=== PATIENT | male | born 1950 | race Caucasian/White ===

== ENCOUNTER → 2016-11-25 09:03 | Outpatient (CLI) | payer MEDICARE ==
--- NOTE | 2016-11-28 16:40 | EC ---
PATIENT:MARY FABIAN DATE OF SERVICE: 11/25/16 SEX: M MEDICAL RECORD: [id number] DATE OF : 46 LOCATION:[facility] AGE OF PATIENT: 66 ADMISSION DATE: 11/25/16 REFERRING PHYSICIAN: INTERPRETING PHYSICIAN: ERIK TAYLOR MD ECHOCARDIOGRAM REPORT ECHO CHARGES 4 ECHO COMPLETE CLINICAL DIAGNOSIS: DYSPNEA/EDEAM/HTN ECHOCARDIOGRAPHIC MEASUREMENTS (adult normal given) AC root (d.<3.7cm) 3.9 LV Septum d (<1.2 cm> 1.3 Valve Excursion 2.0 LV Septum (systole) 1.7 Left Atria (s.<4.0cm> 3.6 LVPW d(<1.2cm) 1.2 RV (d.<2.3cm) 2.3 LVPW (sytole) 1.6 LV diastole(<5.6CM) 5.2 MV E-F(>70mm/sec) LV systole 3.2 LVOT Diameter 1.9 MV exc.(>10mm) 1.1 Est.ejection fraction (50-75%) Pericardial Effusion N DOPPLER: LVIT A 76.0 E 44.0 LA RVSP 22 LVOT 94 AOP1/2T Asc. Ao 109 RVOT 71 RA PA 103 AV Gradient Peak 4.71 AV Mean 2.41 AV Area 2.6 MV Gradient Peak 2.70 MV Mean 0.88 MV Area COMMENTS: Coin Dealer: Dee HOUSE Fisher Pot:Dee Rose TAPE# PACS DATE OF SERVICE: 11/25/2016 Echocardiogram FINDINGS: 1. Left ventricular chamber size is within normal limits. Left ventricular systolic function is normal. Overall ejection fraction estimated at 50-55%. 2. Left atrium, right atrium and right ventricular chamber sizes are within normal limits. 3. Valvular structures have normal structure and motion. ECHOCARDIOGRAM REPORT [id number] MARY FABIAN 4. Doppler interrogation reveals only trace to mild mitral regurgitation, trace to mild tricuspid regurgitation. No other valvular insufficiency or stenosis. 5. No evidence of pericardial effusion or left ventricular thrombus. TRANSINT:[id number] Voice Confirmation ID: [id number] DOCUMENT ID: [id number] ERIK TAYLOR MD at [facility] CC: [id number] DICTATION DATE: 11/25/16 1156 COMMERCIAL ENERGY RATER: 11/25/16 1218 DEP CLI 11/25/16 [place] [id number] [place] [id number]
== END | disposition home or self-care (01) ==
LOC: D.ECHO 09:03
DX: R06.00 Dyspnea, unspecified (principal); R60.0 Localized edema; I10 Essential (primary) hypertension

== ENCOUNTER → 2016-12-17 13:23 | Outpatient (CLI) | payer MEDICARE | END | disposition home or self-care (01) | LOC: D.CT 13:23 | DX: R06.02 Shortness of breath (principal); R60.0 Localized edema; E03.8 Other specified hypothyroidism ==

== ENCOUNTER 2016-12-17 14:35 | Emergency (ER) | payer MEDICARE | END 2016-12-17 16:06 | disposition home or self-care (01) | LOC: D.ER 14:35 | DX: T78.8XXA Other adverse effects, not elsewhere classified, initial encounter (principal); X58.XXXA Exposure to other specified factors, initial encounter; E03.9 Hypothyroidism, unspecified; I10 Essential (primary) hypertension; E07.9 Disorder of thyroid, unspecified ==

== ENCOUNTER → 2019-07-26 11:55 | Outpatient (CLI) | payer MEDICARE ==
--- NOTE | ~2019-07-26 | HEMODYNAMI ---
PATIENT:JF FABIAN MEDICAL RECORD: [id number] : 46 LOCATION:[facility] ADMISSION DATE: 07/26/19 Generatedon:07/26/201913:36 Patient name: JF FABIAN Patient #: [id number] SSN: D OB: 1950 Date of study: 07/26/2019 Page: Of Hemodynamic Procedure Report Patient Data Patient Demographics Procedure consent was obtained First Name: JF Gender: Male Last Name: CAREN : 1950 Middle Initial: STEVE Age: 68 year(s) Patient #: [id number] Race: Unknown Additional ID: [id number] Contact details [address]: [address] [place] [address] State: [place] City: [place] Zip code: [address] Admission Admission Data Admission Date: 07/26/2019 Admission Time: 11:55 Procedure Procedure Types Cath Procedure Peripheral Cath Diagnostic Procedure Miscellaneous Aspiration/Injection (Joint) Procedure Description Procedure Date Procedure Date: 07/26/2019 Procedure Start Time: 13:29 Procedure End Time: 13:36 Procedure Staff Name Function Gabriella Gates MD Performing Physician RAJESH BLACKMAN RT Monitor Procedure Data Cath Procedure Fluoroscopy Diagnostic fluoroscopy Total fluoroscopy Time: 0.3 time: 0.3 min min Diagnostic fluoroscopy Total fluoroscopy dose: 3 dose: 3 mGy mGy Hemodynamics Rest Pre Cath Intra NCS Post Cath Procedure Log Time Note 13:12:14 SAFE-T PLUS MYELOGRAM TRAY opened to sterile field. 13:20:32 RAJESH BLACKMAN RT (R) sent for patient. Start room use. 13:20:33 Time tracking: Regular hours (M-F 7:00 - 5:00) 13:20:40 Patient received from Other to IR Alert and oriented. Tansferred to table in Supine position. 13:20:42 Signed procedure consent form obtained from patient. 13:20:44 Correct patient and procedure confirmed by team. 13:20:45 - 13:20:46 - 13:20:50 Pre-procedure instructions explained to patient. 13:20:51 Pre-op teaching completed and patient verbalized understanding. 13:20:54 Is the patient allergic to Iodine/contrast media? Yes. 13:21:15 Is patient on blood thinner?No 13:21:18 - 13:21:26 Right Hip was prepped with betadine and draped in sterile fashion. 13::28 Sharps counted by scrub and verified by oDv ::29 Alarms reviewed by Arabella Zuniga 13:21:33 - 13:23:59 Physician arrived 13:24:10 --------ALL STOP TIME OUT------ 13:24:12 Final Timeout: patient, procedure, and site verified with staff and physician. All members of the team are in agreement. 13:24:17 Right hip site verified by team. ::37 Procedure started. :37 Full Disclosure recording started 13:29:12 Local anesthetic to Right Hip with Lidocaine 1% by Gabriella Gates MD.INITIA L ACCESS ONLY 13:34:42 Procedure ended.(Physican Out) 13:34:59 Fluoroscopy time 00.30 minutes. 13:35:04 Fluoroscopy dose: 3 mGy 13:35:04 Flurop Dose total: 3 13:35:13 Sharps counted by scrub and verified by R.N. 13:35:27 Post Right Hip:stable. bandaid applied and patient sent home 13:35:44 Post procedure instruction explained to patient.Patient verbalizes understanding. 13:35:52 Procedure and supply charges have been captured, reviewed, submitted an d are correct. 13:36:16 Procedure ended. 13:36:16 Full Disclosure recording stopped Device Usage Item Name Manufacture Quantity Catalog Hospital Part Current Minimal Lot# / Number Charge Number Stock Stock Serial# Code SAFE-T CareFusion 1 [id number] PLUS MYELOGRAM TRAY Signature Audit [place] Stage Time Signature Unsigned Intra-Procedure 07/26/2019 RAJESH BLACKMAN RT 1:36:28 PM (R) Signatures Performing Physician : Signature : Gabriella Gates MD Date : Time : Monitor : RAJESH BLACKMAN RT Signature : Date : Time : [address] [place] [address]
== END | disposition home or self-care (01) ==
LOC: D.SP 11:55 → D.RAD 13:00
PROVIDERS: ATTEND Nurse Practitioner Family
DX: M25.551 Pain in right hip (principal)

== ENCOUNTER → 2019-10-12 12:32 | Outpatient (CLI) | payer MEDICARE | END | disposition home or self-care (01) | LOC: D.LABREF 12:32 | PROVIDERS: ATTEND Orthopaedic Surgery | DX: M16.11 Unilateral primary osteoarthritis, right hip (principal) ==

== ENCOUNTER 2019-10-21 13:40 | Inpatient (IN) | payer MEDICARE ==
[~2019-10-21] VITALS: Ht 175.3 cm; Wt 85.9 kg
[2019-11-10] MEDS ORDERED: HYDROCHLOROTHIA25 MG PO (10:45)
[2019-11-10] MEDS ORDERED: TIROSINT100 MCG PO (10:45)
[2019-11-10] MEDS ORDERED: ALBUTEROL2.5 MG/3 M INH (10:47)
[2019-11-10 12:04] LABS: CALC OSMOLALITY 279 mosm/kg (275-300); CALCIUM 8.8 mg/dL (8.5-10.1); CARBON DIOXIDE 31.9 mmol/L (21.0-32.0); CHLORIDE - SERUM 100 mmol/L (98-107); GLUCOSE 101 mg/dL (74-106); POTASSIUM - SERUM 3.3 mmol/L (3.5-5.1); SODIUM 139 mmol/L (136-145); UREA NITROGEN 19 mg/dL (7-18); eGFR NON AFRICAN AMERICAN 78 mL/min (90-120)
[2019-11-10 12:16] LABS: APTT 32.6 SECONDS (22.8-39.4); PROTIME 12.7 SECONDS (11.6-15.0)
[2019-11-10 12:32] LABS: APPEARANCE CLEAR (CLEAR); BACTERIA FEW /hpf (NEGATIVE); BILIRUBIN NEGATIVE (NEGATIVE); COLOR DK YELLOW (YELLOW); EPITHELIAL CELLS OCC /hpf (0-5); GLUCOSE NEGATIVE (NEGATIVE); HYALINE CAST OCC /lpf (NONE SEEN); KETONE NEGATIVE (NEGATIVE); MUCUS >1+ /lpf (NONE SEEN); NITRITE NEGATIVE (NEGATIVE); PROTEIN TRACE mg/dL (NEGATIVE); SPECIFIC GRAVITY 1.015 (1.005-1.020); UROBILINOGEN NORMAL (NORMAL); WHITE CELLS - URINE OCC /hpf (NEGATIVE)
[2019-11-10 12:53] LABS: BASOPHILS 0.3 % (0-2); EOSINOPHILS 2.1 % (0-7); HEMATOCRIT 43.8 % (42.0-54.0); HEMOGLOBIN 15.3 g/dL (13.5-17.5); IMMATURE GRANULOCYTES 0.3 % (0-5); LYMPHOCYTES 43.5 % (15-50); MCH 30.4 pg (26.0-34.0); MCHC 34.9 g/dL (31.0-37.0); MCV 87.1 fL (80.0-100.0); MEAN PLATELET VOLUME 8.7 fL (7.4-10.4); MONOCYTES 6.5 % (2-11); NEUTROPHILS 47.3 % (40-80); PLATELET COUNT 360 10x3/uL (130-400); RBC 5.03 10x6/uL (4.20-6.10); RDW 12.5 % (11.5-14.5); WBC 11.4 10x3/uL (4.8-10.8)
[2019-11-15 10:48] VITALS: BP 145/84; BMI 28.1
[2019-11-15 17:00] VITALS: BP 101/74
[2019-11-15 17:21] VITALS: BP 101/74; Ht 175.3 cm; Wt 85.9 kg
--- NOTE | 2019-11-15 18:50 | NUR ---
PATIENT IS RESTING IN BED WITH EYES CLOSED AND ICE PACK OVER FOREHEAD. NO S/S OF ACUTE DISTRESS. NO COMPLAINTS AT THIS TIME. PATIENT IV IN THE L HAND 1/2 NORMAL SALINE @ 100 ML/HR. IV IS PATENT WITHOUT REDNESS, SWELLING, OR TENDERNESS. O2 NASAL CANNULA @ 3L. PATIENT IS POST OP DAY 1 FOR REPAIR OF A R HIP FX. DRESSING IS C/D/I. PATIENT IS WEARING GLASSES, AND IS [place]. CALL LIGHT IN PLACE WILL CONTINUE TO MONITOR.
[2019-11-15 20:52] VITALS: BP 106/71
[2019-11-16 01:30] VITALS: BP 110/73
[2019-11-16 05:14] VITALS: BP 110/56
--- NOTE | 2019-11-16 06:18 | NUR ---
I have reviewed this patient and I concur with the Shift Assessment completed by the Licensed Practical Nurse today this shift.
[2019-11-16 06:49] LABS: BASOPHILS 0.1 % (0-2); EOSINOPHILS 1.2 % (0-7); HEMATOCRIT 35.3 % (42.0-54.0); HEMOGLOBIN 11.7 g/dL (13.5-17.5); IMMATURE GRANULOCYTES 0.2 % (0-5); LYMPHOCYTES 28.5 % (15-50); MCH 29.5 pg (26.0-34.0); MCHC 33.1 g/dL (31.0-37.0); MCV 88.9 fL (80.0-100.0); MEAN PLATELET VOLUME 8.7 fL (7.4-10.4); MONOCYTES 9.6 % (2-11); NEUTROPHILS 60.4 % (40-80); PLATELET COUNT 320 10x3/uL (130-400); RBC 3.97 10x6/uL (4.20-6.10); RDW 12.5 % (11.5-14.5); WBC 15.4 10x3/uL (4.8-10.8)
--- NOTE | 2019-11-16 06:59 | OP ---
PATIENT NAME: JF FABIAN MEDICAL RECORD: [id number] :46 LOCATION:[id number] ADMISSION DATE:11/15/19 SURGEON: RUSSELL PARSON DO DATE OF OPERATION: 11/15/2019 PROCEDURE PERFORMED: Right total hip arthroplasty. PREOPERATIVE DIAGNOSIS: Right hip osteoarthritis, osteoarthritis. POSTOPERATIVE DIAGNOSIS: Right hip osteoarthritis. INDICATIONS: Mr. Fabian is a 69-year-old male who has had right hip pain for quite some time. He has started dealing with the pain. He said this has affected his activities of daily living. Once he discovered that he had a total hip done, he wanted something done surgically due to the fact that it bothered him so much. He tried all manner of nonoperative treatment first. He is aware of the risks including infection, bleeding, damage to nerves and vessels, fracture, failure of implant, continued pain, need for further surgery, blood clots, and even and leg length discrepancy and he signed a consent. SURGEON: Russell Parson DO DESCRIPTION OF PROCEDURE: The patient was taken to the operative suite, laid in supine position, given general anesthetic and intubated. He was then moved over to the Vest table and positioned. He was given 2 grams Ancef, 80 mg gentamicin, and a gram of TXA prior to surgery. Once he was positioned on the Vest table, the right hip was prepped and draped in sterile fashion. Timeout was performed. Everyone was agreeance with correct side, site, patient, and procedure. The incision then began over the tensor fascia yang muscle. Thorough dissection was made down to the tensor fascia yang fascia. The fascia was incised. Fascia was taken anterior to the muscle belly posteriorly, opened up the rectus interval. The rectus interval was then opened and then the rectus was taken medially and the tensor fascia yang laterally. The ascending branch of the lateral femoral circumflex artery was then encountered or tied off and coagulated with the Aquamantys and cut and then exposed the capsule. Capsule was opened and tagged and then Hohmanns were put around the femoral neck. Femoral neck was then cut and the head was removed. I then removed the labrum and the pulvinar and began reaming first medializing and then up to a 52, 52 cup was impacted and liner was impacted and the femur was then exposed and began broaching up to a #9 and #9 fit somewhat snug was then we trialed up to a -3 and made more length and this is dislocated and taken down and then we broached up to an 11. The 11 fit very snugly and we put a standard high offset on. This was reduced and x-rays were taken it very well and were almost exactly equally to the left side on AP pelvis. The femur was checked and there were no fractures seen. The site was then thoroughly irrigated and then the povidone iodine 10% solution with 500 mL of normal saline was put into the wound and left for 3 minutes, was then suctioned out and then more than a liter of normal saline was used to irrigate that. Then, we put in vancomycin and tobramycin powder and Lacy powder. The tensor fascia yang fascia was then closed with #1 Vicryl, first in a [id number] and then a running locking stitch. Skin was then closed with 2-0 Vicryl in inverted interrupted fashion, 4-0 Monocryl running on the skin and Prineo glue on the skin. Telfa and Tegaderm, then we covered the incision. He was then awakened and taken to recovery in stable condition. Blood loss approximately 300 mL. OPERATIVE REPORT [id number] JF FABIAN COMPLICATIONS: None. TRANSINT:[id number] Voice Confirmation ID: [id number] DOCUMENT ID: [id number] RUSSELL PARSON DO at 0659 CC: [id number] DICTATION DATE: 11/15/19 1551 PAYROLL COORDINATOR: 11/16/19 0241 ADM IN [place] [id number] [place] [id number]
[2019-11-16 07:09] LABS: ALBUMIN 2.9 g/dL (3.4-5.0); ANION GAP 11.9 mmol/L (8-16); BILIRUBIN - TOTAL 0.72 mg/dL (0.2-1.3); CALCIUM 7.6 mg/dL (8.5-10.1); CREATININE - SERUM 1.3 mg/dL (0.6-1.3); MAGNESIUM - SERUM 1.8 mg/dL (1.8-2.4); PHOSPHOROUS 3.5 mg/dL (2.5-4.9); POTASSIUM - SERUM 3.9 mmol/L (3.5-5.1); PROTEIN - SERUM 5.8 g/dL (6.4-8.2)
--- NOTE | 2019-11-16 08:00 | NUR ---
ASSESSMENT PER FLOW SHEET. PT IS WITHOUT DISTRESS.HE IS HAVING SOME PAIN. MEDS ORDERED PER MAR FOR HIP.FALL PREVENTION IN PLACE
[2019-11-16 08:57] VITALS: BP 111/65
--- NOTE | 2019-11-16 11:39 | NUR ---
Rehab Note- Acute Inpatient Rehab prescreen order received. The patient has [employer] insurance and will require a PreAuth prior to an acute inpatient rehab stay. OT Eval is needed for PreAuth process. Will begin the PreAuth process. Will follow the patient at this time. Thank you for this referral! Ca Lauren RN Clinical Liaison, [facility] Re[facility]
[2019-11-16 11:54] VITALS: BP 108/66
--- NOTE | 2019-11-16 15:41 | NUR ---
COUDE DINH INSERTED USING ADVANCED MANUFACTURING ASSOCIATE.450 CC OF CONCENTRATED URINE COLLECTED IN DRAINAGE BAG.URINE TO LAB FOR UA. STATES PATIENT PREVIOUSLY ON ABX FOR UTI AND HOPES IT IS NOT COMING BACK
--- NOTE | 2019-11-16 16:00 | NUR ---
HIGH RISK / IMPAIRED SKIN INTEGRITY -TURN/REPOSITION Q 2 HOURS (HOURLY REPOSITIONING IF UP IN CHAIR -FLOAT HEELS OFF MATTRESS/PILLOWS -DAILY AND NEEDED PERSONAL CARE, USING CALMOSEPTINE CREAM IF REDNESS IS NOTED DUE TO INCONTINENCE/MOISTURE -SKIN ASSESSMENT Q SHIFT -CONSULT WOUND CARE IF NON-BLANCHABLE REDNESS OVER BONY PROMINENCES IS NOTED
[2019-11-16 16:15] VITALS: BP 116/74
--- NOTE | 2019-11-16 16:25 | MORECARE ---
CASE MANAGEMENT DISCHARGE SUMMARY PATIENT: JF FABIAN UNIT: [id number] ADM DATE: 11/15/19 AGE: 69 : 48 SEX: M ROOM/BED: D.2231 AUTHOR: GIULIA PEOPLES PHYSICIAN: REFERRING PHYSICIAN: AKIN PARSON DO DATE OF SERVICE: 11/16/19 Discharge Plan Patient Name: JF FABIAN Facility: [facility]:[place] : 1950 Planned Disposition: Inpatient Rehab Anticipated Discharge Date: Discharge Date: Expected LOS: Initial Reviewer: [email or web address] Initial Review Date: 11/16/2019 Generated: 11/16/19 5:25 pm Comments DCP- Discharge Planning Updated by [email or web address]: Chrissy Brooks on 11/16/19 3:[address] Patient Name: JF FABIAN Admission Status: Elective Accout number: [id number] Admission Date: 11-15-2019 : 1950 Admission Diagnosis: Attending: AKIN PARSON Current LOS: 1 Anticipated DC Date: Planned Disposition: Inpatient Rehab Primary Insurance: [employer] ADV Discharge Planning Comments: CM met with patient to complete initial dc planning assessment. CM educated patient on the CM role and verbal consent given by patient to complete assessment. Patient is drowsy during the assessment and gives permission for to answer questions. Patient lives at home with his . He is typically independent with all ADL's. CM discussed availability of home health, rehab services, and medical equipment. states they would like him to go to inpatient rehab at [facility]. States she does not want him to go to [facility], so will not give me a second choice. Rehab screen/OT and PT evals are ordered. I explained he would need authorization from insurance prior to admission to inpatient rehab. CM will continue to follow and will assist as needed with dc plans/needs. Header Up: Chrissy Brooks DCPIA - Discharge Planning Initial Assessment Updated by [id number]: Chrissy Brooks on 11/16/19 4:20 pm * Is the patient Alert and Oriented? No * How many steps to enter\exit or inside your home? 2/0 * PCP Dr. Tineo * Pharmacy [facility] in [place] * Preadmission Environment Home with Family * ADLs Independent * Equipment Cane Elevated Toliet Seat Other Walker * Other Equipment Walk in shower * List name and contact numbers for known caregivers / representatives who currently or will assist patient after discharge: Jacquelin Fabian - spouse - [phone] * Verbal permission to speak to the caregivers and representatives has been obtained from the patient. Yes * Community resources currently utilized None * Additional services required to return to the preadmission environment? Yes * Can the patient safely return to the preadmission environment? Yes * Has this patient been hospitalized within the prior 30 days at any hospital? No Coverage Notice Reviewer: [id number] William Brooks Notice Issued Date-Time: 11/16/2019 16:14 Notice Type: Patient Choice Letter Notice Delivered To: Family Member Relationship to Patient: Spouse Box Turner Name: Jacquelin Fabian Delivery Method: HAND - Hand Delivered Karmen Days: Prior Verbal Notification: Recipient Understood Notice: Yes Recipient Signature: Yes Med Rec Note Co-signed by Attending: Coverage Notice Comment: MELIDA for [facility] inpatient rehab Patient Name: JF FABIAN Page [phone] at 1625 All edits/amendments must be made on the electronic document DICTATION DATE: 11/16/191624 COOK CHEF: RAINER 11/16/191624 RPT#: [id number] DC DATE: STATUS: ADM IN [facility] [address] [place] [address] END OF REPORT
[2019-11-16 16:26] LABS: APPEARANCE CLEAR (CLEAR); BILIRUBIN NEGATIVE (NEGATIVE); COLOR YELLOW (YELLOW); GLUCOSE NEGATIVE (NEGATIVE); KETONE NEGATIVE (NEGATIVE); NITRITE NEGATIVE (NEGATIVE); PROTEIN NEGATIVE (NEGATIVE); UROBILINOGEN NORMAL (NORMAL)
[2019-11-16 16:38] LABS: BACTERIA MODERATE /hpf (NEGATIVE); WHITE CELLS - URINE 0-5 /hpf (NEGATIVE)
--- NOTE | 2019-11-16 18:38 | NUR ---
HAS REMAINED WITHOUT NEEDS. AT BEDASIDE. PT IS WITHOUT DISTRESS.CONT PLAN OF CARE
--- NOTE | 2019-11-16 19:40 | NUR ---
PT SITTING UP IN BED WITHOUT DISTRESS, AT BEDSIDE. DENIES NEEDS OR PAIN. BED ALARM ON. CL IN REACH, WILL CTM
[2019-11-16 20:00] VITALS: BP 143/77
[2019-11-17 07:13] LABS: ALBUMIN 2.8 g/dL (3.4-5.0); ANION GAP 9.4 mmol/L (8-16); BILIRUBIN - TOTAL 0.62 mg/dL (0.2-1.3); CALCIUM 8.2 mg/dL (8.5-10.1); CARBON DIOXIDE 31.2 mmol/L (21.0-32.0); CREATININE - SERUM 1.4 mg/dL (0.6-1.3); MAGNESIUM - SERUM 2.2 mg/dL (1.8-2.4); POTASSIUM - SERUM 3.6 mmol/L (3.5-5.1); PROTEIN - SERUM 6.2 g/dL (6.4-8.2)
--- NOTE | 2019-11-17 08:00 | NUR ---
PATIENT JEROD SLEEPING IN CHAIR AT BEDSIDE. PATIENT LAYING ON BACK. NO NEEDS AT THIS TIME. CL IN REACH. WCTM
[2019-11-17 08:45] VITALS: BP 112/69
[2019-11-17 09:27] LABS: BASOPHILS 0.2 % (0-2); EOSINOPHILS 0.9 % (0-7); HEMATOCRIT 39.5 % (42.0-54.0); HEMOGLOBIN 13.3 g/dL (13.5-17.5); IMMATURE GRANULOCYTES 0.3 % (0-5); LYMPHOCYTES 26.2 % (15-50); MCH 29.9 pg (26.0-34.0); MCHC 33.7 g/dL (31.0-37.0); MCV 88.8 fL (80.0-100.0); MEAN PLATELET VOLUME 8.6 fL (7.4-10.4); MONOCYTES 10.3 % (2-11); NEUTROPHILS 62.1 % (40-80); PLATELET COUNT 309 10x3/uL (130-400); RBC 4.45 10x6/uL (4.20-6.10); RDW 12.5 % (11.5-14.5)
--- NOTE | 2019-11-17 11:49 | NUR ---
PATIENT SITTING IN CHAIR. JEROD ON BED. NO NEEDS AT THIS TIME. CL IN REACH. WCTM
[2019-11-17 12:46] VITALS: BP 129/58
--- NOTE | 2019-11-17 13:51 | NUR ---
PATIENT BACK IN BED. JEROD IN ROOM IN CHAIR. NO NEEDS AT THIS TIME. CL IN REACH. WCTM
--- NOTE | 2019-11-17 16:00 | NUR ---
CLAMPED DINH. INSTRUCTED PATIENT ON BLADDER TRAINING. CL IN REACH. WCTM
--- NOTE | 2019-11-17 16:31 | NUR ---
PATIENT FELT LIKE HE HAD THE URGE TO URINATE. I UNCLAMPED THE DINH. URINE FLOWED. CL IN REACH. WCTM
[2019-11-17 17:23] VITALS: BP 109/69
--- NOTE | 2019-11-17 19:00 | NUR ---
DINH CATH REMOVED. 9 ML REMOVED FROM BALLOON. UPON REMOVAL PATIENT STATED, "IT HARO." CL IN REACH.
--- NOTE | 2019-11-17 19:45 | NUR ---
PT SITTING UP IN BED WITHOUT DISTRESS, AOX4. AT BEDSIDE. IV LEFT HAND INFUSING 1/2NS @ 50. O2 2L/NC. STATES HE DOES NOT FEEL WELL. DOES NOT FEEL NAUSEOUS OR LIKE IT IS BECAUSE HE HAS NOT HAD A BM, JUST SAYS HE OVERALL DOES NOT FEEL GOOD. INFORMED PT ABOUT ORDERED ENEMA, PT REFUSED IT STATING HE DOES NOT WANT ANYTHING ELSE, THAT HE HAS FELT BAD EVER SINCE THEY GAVE HIM THE SUPPOSITORY. EDUCATED PT ON ENEMA, STATES MAYBE HE WILL TRY IT LATER.
--- NOTE | 2019-11-17 21:40 | NUR ---
PT CONTINUES TO REFUSE ENEMA. STATES HE IS TIRED OF NEW MEDICATIONS AND TREATMENTS AND HE ONLY KEEPS FEELING WORSE, THAT THEY ARE NOT HELPING. WHEN TRYING TO GIVE HS MEDS, PT STATED HE WOULD ONLY TAKE THE MIRALAX OR SENOKOT, BUT WOULD NOT DO BOTH. PT CHOSE TO TAKE MIRALAX. DENIES OTHER NEEDS. WILL CTM
[2019-11-18 04:00] VITALS: BP 140/83
[2019-11-18 05:11] LABS: BASOPHILS 0.1 % (0-2); EOSINOPHILS 0.6 % (0-7); HEMATOCRIT 36.5 % (42.0-54.0); HEMOGLOBIN 12.3 g/dL (13.5-17.5); IMMATURE GRANULOCYTES 0.2 % (0-5); MCH 29.4 pg (26.0-34.0); MCHC 33.7 g/dL (31.0-37.0); MCV 87.1 fL (80.0-100.0); MEAN PLATELET VOLUME 8.7 fL (7.4-10.4); MONOCYTES 9.5 % (2-11); NEUTROPHILS 70.6 % (40-80); PLATELET COUNT 316 10x3/uL (130-400); RBC 4.19 10x6/uL (4.20-6.10); RDW 12.5 % (11.5-14.5); WBC 17.2 10x3/uL (4.8-10.8)
[2019-11-18 05:53] LABS: ALBUMIN 2.7 g/dL (3.4-5.0); ANION GAP 12.3 mmol/L (8-16); BILIRUBIN - TOTAL 0.56 mg/dL (0.2-1.3); CALCIUM 8.5 mg/dL (8.5-10.1); CARBON DIOXIDE 28.9 mmol/L (21.0-32.0); CREATININE - SERUM 1.3 mg/dL (0.6-1.3); MAGNESIUM - SERUM 1.9 mg/dL (1.8-2.4); PHOSPHOROUS 2.4 mg/dL (2.5-4.9); POTASSIUM - SERUM 3.2 mmol/L (3.5-5.1); PROTEIN - SERUM 6.6 g/dL (6.4-8.2)
[2019-11-18] MEDS ORDERED: Senokot-S Tablet PO (09:20)
[2019-11-18] MEDS ORDERED: Narcan INJ IV (09:20)
[2019-11-18] MEDS ORDERED: BAYER CHEWABLE81 MG PO (09:21)
[2019-11-18] MEDS ORDERED: OXYCODONE HCL5 M1 PO (09:21)
[2019-11-18] MEDS ORDERED: FLOMAX0.4 MG PO (09:22)
[2019-11-18] MEDS ORDERED: CIPRO500 MG PO (09:22)
[2019-11-18 09:32] VITALS: BP 134/87
--- NOTE | 2019-11-18 11:18 | MORECARE ---
CASE MANAGEMENT DISCHARGE SUMMARY PATIENT: JF FABIAN UNIT: [id number] ADM DATE: 11/15/19 AGE: 69 : 48 SEX: M ROOM/BED: D.2203 AUTHOR: SHELTON,GIULIA PHYSICIAN: REFERRING PHYSICIAN: AKIN PARSON DO DATE OF SERVICE: 11/18/19 Discharge Plan Patient Name: JF FABIAN Facility: [facility]:[place] : 1950 Planned Disposition: Inpatient Rehab Anticipated Discharge Date: Discharge Date: Expected LOS: Initial Reviewer: [email or web address] Initial Review Date: 11/16/2019 Generated: 11/18/19 12:17 pm Comments DCP- Discharge Planning Updated by [email or web address]: Becky Hilton on 11/18/19 10:[address] Received approval for patient to go to inpatient rehab at [facility]. from Yovana at [facility]. Auth #[id number] IMM served and explained. MELIDA signed. Patient will be discharged to inpatient rehab today. DCP- Discharge Planning Updated by [id number]: Chrissy Brooks on 11/16/19 3:[address] Patient Name: JF FABIAN Admission Status: Elective Accout number: [id number] Admission Date: 11-15-2019 : 1950 Admission Diagnosis: Attending: AKIN PARSON Current LOS: 1 Anticipated DC Date: Planned Disposition: Inpatient Rehab Primary Insurance: [employer] MEDICARE ADV Discharge Planning Comments: CM met with patient to complete initial dc planning assessment. CM educated patient on the CM role and verbal consent given by patient to complete assessment. Patient is drowsy during the assessment and gives permission for to answer questions. Patient lives at home with his . He is typically independent with all ADL's. CM discussed availability of home health, rehab services, and medical equipment. states they would like him to go to inpatient rehab at [facility]. States she does not want him to go to [facility], so will not give me a second choice. Rehab screen/OT and PT evals are ordered. I explained he would need authorization from insurance prior to admission to inpatient rehab. CM will continue to follow and will assist as needed with dc plans/needs. Electric Motor Control Assembler: Chrissy Todd DCPIA - Discharge Planning Initial Assessment Updated by [email or web address]: Chrissy Todd on 11/16/19 4:20 pm * Is the patient Alert and Oriented? No * How many steps to enter\exit or inside your home? 2/0 * PCP Dr. Tineo * Pharmacy [facility] in [place] * Preadmission Environment Home with Family * ADLs Independent * Equipment Cane Elevated Tol[place] Seat Other Walker * Other Equipment Walk in shower * List name and contact numbers for known caregivers / representatives who currently or will assist patient after discharge: Jacquelin Fabian - spouse - [phone] * Verbal permission to speak to the caregivers and representatives has been obtained from the patient. Yes * Community resources currently utilized None * Additional services required to return to the preadmission environment? Yes * Can the patient safely return to the preadmission environment? Yes * Has this patient been hospitalized within the prior 30 days at any hospital? No Coverage Notice Reviewer: [id number] - Chrissy Darlingramses Notice Issued Date-Time: 11/16/2019 16:14 Notice Type: Patient Choice Letter Notice Delivered To: Family Member Relationship to Patient: Spouse Data Conversion Developer Name: Jacquelin Fabian Delivery Method: HAND - Hand Delivered Karmen Days: Prior Verbal Notification: Recipient Understood Notice: Yes Recipient Signature: Yes Med Rec Note Co-signed by Attending: Coverage Notice Comment: MELIDA for [facility] inpatient rehab Reviewer: [id number] - Becky Hilton Notice Issued Date-Time: 11/18/2019 9:00 Notice Type: IM Discharge Notice Notice Delivered To: Family Member Relationship to Patient: Spouse Data Conversion Developer Name: JACQUELIN Delivery Method: HAND - Hand Delivered Karmen Days: Prior Verbal Notification: Recipient Understood Notice: Yes Recipient Signature: Yes Med Rec Note Co-signed by Attending: Coverage Notice Comment: Last DP export: 11/16/19 3:25 pm Patient Name: JF FABIAN Page [phone] at 1118 All edits/amendments must be made on the electronic document DICTATION DATE: 11/18/19 1117 MOLDING PLASTERER: RAINER 11/18/19 1117 RPT#: [id number] DC DATE: STATUS: ADM IN [place] [id number] [place] [address] END OF REPORT
--- NOTE | 2019-11-18 11:24 | NUR ---
PATIENT UP SITTING IN CHAIR. JEROD IN BED. CL IN REACH. NO NEEDS AT THIS TIME. WCTM
[2019-11-18] MEDS ORDERED: PHENAZOPYRIDIN100 MG PO (12:23)
[2019-11-18 13:55] VITALS: BP 145/80
--- NOTE | 2019-11-18 16:30 | NUR ---
IV THERAPY REMOVED FROM LEFT HAND. DISCHARGE INSTRUCTIONS GIVEN. VERBALIZED UNDERSTANDING.
--- NOTE | 2019-11-20 12:33 | MORECARE ---
CASE MANAGEMENT DISCHARGE SUMMARY PATIENT: JF FABIAN UNIT: [id number] ADM DATE: 11/15/19 AGE: 69 : 46 SEX: M ROOM/BED: D.2207 AUTHOR: SHELTON,DOC PHYSICIAN: REFERRING PHYSICIAN: AKIN PARSON DO DATE OF SERVICE: 11/20/19 Discharge Plan Patient Name: JF FABIAN Facility: [facility]:[place] : 1950 Planned Disposition: Inpatient Rehab Anticipated Discharge Date: Discharge Date: 11/18/2019 Expected LOS: Initial Reviewer: [email or web address] Initial Review Date: 11/16/2019 Generated: 11/20/19 1:33 pm Comments DCP- Discharge Planning Updated by [email or web address]: Becky Hilton on 11/18/19 10:[address] Received approval for patient to go to inpatient rehab at [facility]. from Yovana at [facility]. Auth #[id number] IMM served and explained. MELIDA signed. Patient will be discharged to inpatient rehab today. DCP- Discharge Planning Updated by [email or web address]: Chrissy Brooks on 11/16/19 3:[address] Patient Name: JF FABIAN Admission Status: Elective Accout number: [id number] Admission Date: 11-15-2019 : 1950 Admission Diagnosis: Attending: AKIN PARSON Current LOS: 1 Anticipated DC Date: Planned Disposition: Inpatient Rehab Primary Insurance: [employer] MEDICARE ADV Discharge Planning Comments: CM met with patient to complete initial dc planning assessment. CM educated patient on the CM role and verbal consent given by patient to complete assessment. Patient is drowsy during the assessment and gives permission for to answer questions. Patient lives at home with his . He is typically independent with all ADL's. CM discussed availability of home health, rehab services, and medical equipment. states they would like him to go to inpatient rehab at [facility]. States she does not want him to go to [facility], so will not give me a second choice. Rehab screen/OT and PT evals are ordered. I explained he would need authorization from insurance prior to admission to inpatient rehab. CM will continue to follow and will assist as needed with dc plans/needs. Surfacing Machine Operator: Chrissy Todd DCPIA - Discharge Planning Initial Assessment Updated by [id number]: Chrissy Brooks on 11/16/19 4:20 pm * Is the patient Alert and Oriented? No * How many steps to enter\exit or inside your home? 2/0 * PCP Dr. Tineo * Pharmacy [facility] in [facility] * Preadmission Environment Home with Family * ADLs Independent * Equipment Cane Elevated [place] Seat Other Walker * Other Equipment Walk in shower * List name and contact numbers for known caregivers / representatives who currently or will assist patient after discharge: Jacquelin Fabian - spouse - [phone] * Verbal permission to speak to the caregivers and representatives has been obtained from the patient. Yes * Community resources currently utilized None * Additional services required to return to the preadmission environment? Yes * Can the patient safely return to the preadmission environment? Yes * Has this patient been hospitalized within the prior 30 days at any hospital? No Coverage Notice Reviewer: [id number] - Chrissy Brooks Notice Issued Date-Time: 11/16/2019 16:14 Notice Type: Patient Choice Letter Notice Delivered To: Family Member Relationship to Patient: Spouse Digital Marketing Associate Name: Jacquelin Fabian Delivery Method: HAND - Hand Delivered Karmen Days: Prior Verbal Notification: Recipient Understood Notice: Yes Recipient Signature: Yes Med Rec Note Co-signed by Attending: Coverage Notice Comment: MELIDA for [facility] inpatient rehab Reviewer: [id number] William Hilton Notice Issued Date-Time: 11/18/2019 9:00 Notice Type: IM Discharge Notice Notice Delivered To: Family Member Relationship to Patient: Spouse Digital Marketing Associate Name: JACQUELIN Delivery Method: HAND - Hand Delivered Karmen Days: Prior Verbal Notification: Recipient Understood Notice: Yes Recipient Signature: Yes Med Rec Note Co-signed by Attending: Coverage Notice Comment: Last DP export: 11/18/19 10:18 a Patient Name: JF FABIAN Page [id number] at 1233 All edits/amendments must be made on the electronic document DICTATION DATE: 11/20/19 1233 DIRECTOR OF USER EXPERIENCE: RAINER 11/20/19 1233 RPT#: [id number] DC DATE:11/18/19 STATUS: DIS IN [facility] [address] [place] [address] END OF REPORT
== END 2019-11-18 19:17 | DRG 470 ==
LOC: D.SDCHOLD 11-15 10:05 → D.MS 11-15 10:05 → D.SDCHOLD 11-15 10:30 → D.MS 11-15 16:26
PROVIDERS: Family Medicine; ADMIT Orthopaedic Surgery; ATTEND Orthopaedic Surgery
PROC: 0SR90J9 Replacement of Right Hip Joint with Synthetic Substitute, Cemented, Open Approach (ICD-10-PCS; principal; 2019-11-15 10:30)
DX: M16.11 Unilateral primary osteoarthritis, right hip (principal); D62 Acute posthemorrhagic anemia; N39.0 Urinary tract infection, site not specified; N40.0 Benign prostatic hyperplasia without lower urinary tract symptoms; K21.9 Gastro-esophageal reflux disease without esophagitis; E03.9 Hypothyroidism, unspecified; J42 Unspecified chronic bronchitis; K58.9 Irritable bowel syndrome, unspecified; H40.9 Unspecified glaucoma

== ENCOUNTER 2019-11-18 16:57 | Inpatient (IN) | payer MEDICARE ==
[~2019-11-18] VITALS: Ht 175.3 cm; Wt 85.7 kg
[~2019-11-18 16:57] MED LIST: ALBUTEROL2.5 MG/3 M INH; BAYER CHEWABLE81 MG PO; CIPRO500 MG PO; FLOMAX0.4 MG PO; HYDROCHLOROTHIA25 MG PO; Narcan INJ IV; OXYCODONE HCL5 M1 PO; PHENAZOPYRIDIN100 MG PO; Senokot-S Tablet PO; TIROSINT100 MCG PO
[2019-11-18 22:22] VITALS: BP 132/79; BMI 27.9
[2019-11-18 23:25] VITALS: BP 132/79
--- NOTE | 2019-11-19 03:07 | NUR ---
RESTING IN BED WITH EYES CLOSED.
--- NOTE | 2019-11-19 05:46 | NUR ---
PT RESTING IN BED WITH EYES CLOSED. AWOKE EASILY TO VERBAL STIMULI. TOLEARATED AM MED WITHOUG DIFFICULTY. NO FURTHER NEEDS VOICED.
[2019-11-19 07:35] LABS: BASOPHILS 0.3 % (0-2); EOSINOPHILS 3.4 % (0-7); HEMOGLOBIN 11.1 g/dL (13.5-17.5); IMMATURE GRANULOCYTES 0.2 % (0-5); LYMPHOCYTES 31.5 % (15-50); MCH 29.4 pg (26.0-34.0); MCHC 33.6 g/dL (31.0-37.0); MCV 87.3 fL (80.0-100.0); MEAN PLATELET VOLUME 8.6 fL (7.4-10.4); MONOCYTES 9.7 % (2-11); NEUTROPHILS 54.9 % (40-80); PLATELET COUNT 335 10x3/uL (130-400); RBC 3.78 10x6/uL (4.20-6.10); RDW 12.5 % (11.5-14.5)
[2019-11-19 07:36] LABS: WBC 12.6 10x3/uL (4.8-10.8)
[2019-11-19 07:38] LABS: ANION GAP 8.8 mmol/L (8-16); CALCIUM 8.1 mg/dL (8.5-10.1); CARBON DIOXIDE 32.3 mmol/L (21.0-32.0); CREATININE - SERUM 1.2 mg/dL (0.6-1.3); POTASSIUM - SERUM 3.1 mmol/L (3.5-5.1)
[2019-11-19 08:00] VITALS: BP 126/72
--- NOTE | 2019-11-19 08:00 | NUR ---
SHIFT ASSMT COMPLETED
[2019-11-19 09:25] VITALS: Ht 175.3 cm; Wt 85.7 kg
[2019-11-19 19:43] VITALS: BP 119/72
--- NOTE | 2019-11-19 20:01 | NUR ---
PT IS RESTING IN BED WITH EYES OPEN. ALERT AND ORIENTED X 3. DENIES ACUTE PAIN OR DISCOMFORT AT THIS TIME. NO NEEDS VOICED. VSS. INCISION TO RIGHT HIP IS HEALING WELL. DRESSING IS CDI. NO DRAINAGE NOTED. SR'S ARE UP X 2 IN BED. CALL LIGHT AND BEDSIDE TABLE ARE WITHIN EASY REACH.
--- NOTE | 2019-11-19 23:36 | NUR ---
I have reviewed this patient and I concur with the Shift Assessment completed by the Licensed Practical Nurse today this shift.
--- NOTE | 2019-11-20 03:24 | NUR ---
PT RANG CALL LIGHT WITH COMPLAINT OF BED BEING WET. HIS ICE PACK HAD SPRUNG A LEAK. BED LINENS CHANGED. PT ASSISTED BACK TO BED.
--- NOTE | 2019-11-20 05:56 | NUR ---
PT RESTING IN BED WITH EYES CLOSED. NO DISTRESS NOTED.
--- NOTE | 2019-11-20 08:00 | NUR ---
SITTING UP IN BED.BREAKFAST GIVEN.CL IN REACH.
[2019-11-20 08:15] VITALS: BP 136/78
--- NOTE | 2019-11-20 12:00 | NUR ---
HYDROCORTISONE CREAM APPLIED TO BACK FOR HEAT RASH.
--- NOTE | 2019-11-20 19:28 | NUR ---
PT IS RESTING IN BED WITH EYES OPEN. ALERT AND ORIENTED X 3. DENIES ACUTE PAIN OR DISCOMFORT AT THIS TIME. VSS. NO NEEDS VOICED. INCISION TO RIGHT HIP IS CDI. NO DRAINAGE NOTED. SR'S ARE UP X 2 IN BED. CALL LIGHT AND BEDSIDE TABLE ARE WITHIN EASY REACH.
--- NOTE | 2019-11-20 22:00 | NUR ---
RESTING QUIETLY IN BED WITH EYES CLOSED.
--- NOTE | 2019-11-20 23:20 | NUR ---
I have reviewed this patient and I concur with the Shift Assessment completed by the Licensed Practical Nurse today this shift.
--- NOTE | 2019-11-21 04:14 | NUR ---
RESTING IN BED WITH EYES CLOSED.
[2019-11-21 06:50] LABS: BASOPHILS 0.2 % (0-2); EOSINOPHILS 3.4 % (0-7); HEMATOCRIT 36.6 % (42.0-54.0); IMMATURE GRANULOCYTES 0.3 % (0-5); LYMPHOCYTES 36.7 % (15-50); MCH 28.6 pg (26.0-34.0); MCHC 32.8 g/dL (31.0-37.0); MCV 87.4 fL (80.0-100.0); MEAN PLATELET VOLUME 8.5 fL (7.4-10.4); MONOCYTES 12.1 % (2-11); NEUTROPHILS 47.3 % (40-80); PLATELET COUNT 394 10x3/uL (130-400); RBC 4.19 10x6/uL (4.20-6.10); RDW 12.2 % (11.5-14.5); WBC 11.4 10x3/uL (4.8-10.8)
[2019-11-21 07:20] LABS: ANION GAP 7.6 mmol/L (8-16); CALCIUM 8.9 mg/dL (8.5-10.1); CARBON DIOXIDE 35.6 mmol/L (21.0-32.0); CREATININE - SERUM 1.4 mg/dL (0.6-1.3); POTASSIUM - SERUM 3.2 mmol/L (3.5-5.1)
[2019-11-21 08:00] VITALS: BP 123/78
[2019-11-21] MEDS ORDERED: oxyCODONE IR PO (08:35)
[2019-11-21] MEDS ORDERED: LEVOFLOXACIN500 MG PO (08:35)
--- NOTE | 2019-11-21 08:36 | RHP ---
PATIENT: JF FABIAN MEDICAL RECORD: [id number] ACCOUNT: [id number] LOCATION:[facility]1117 : [birth year] ADMISSION DATE: 11/18/19 REHABILITATION HISTORY AND PHYSICAL EXAMINATION POST ADMISSION PHYSICIAN EXAMINATION ADMITTING DIAGNOSES: Status post right total hip replacement. HISTORY OF PRESENT ILLNESS: The patient is a 69-year-old gentleman who had a right total hip secondary to osteoarthritis of his right hip. He has had this for quite some time. It has been affecting his activities of daily living and quality of life. He electively had surgical intervention due to the fact that he was progressively worsening. He has tried all manners of nonoperative therapy first. On 11/15/2019, he went for a right total hip arthroplasty due to right hip osteoarthritis. He has had postop complicated by UTI, requiring straight catheterization. He has had acute blood loss anemia, hypokalemia. He has been on replacement protocol for this. He is currently on IV antibiotics for UTI, supplemental O2 is being used p.r.n. He has got monitoring and management of his pain control, monitoring his I's and O's secondary to his UTI and need for in and out catheterization, deconditioning, debility, impaired mobility, gait disturbance, high fall risk and self-care deficits. These are barriers to his discharge home. Previously, he was moderately independent with a cane for use of ADLs and mobility. Currently, he is mod-to-max assist for ADLs and mobility. He wants to be able to return home at his prior level of functioning. COMORBIDITIES: Include status post right total hip replacement, acute blood loss anemia, normocytic anemia, hypothyroidism, chronic bronchitis, acid reflux, arthritis, glaucoma, chronic sinusitis, former tobacco use, BPH, acute urinary retention, postop pain, debility, impaired mobility, gait disturbance, deconditioned and tachycardia. PAST MEDICAL HISTORY: Significant for allergies, thyroid problems, hyperglycemia, bronchitis, pneumonia, acid reflux, hernia, arthritis, right hip pain. PAST SURGICAL HISTORY: Includes tonsillectomy and adenoidectomy. Now, he has currently had a hip replacement. ALLERGIES: IODINATED CONTRAST. CURRENT MEDICATIONS: Include Levaquin 500 mg daily, he is on Flomax 0.4 mg daily, hydrochlorothiazide 25 mg daily, aspirin 81 mg daily, Synthroid 100 mcg daily, he is on Senna 2 tabs bedtime, he is on Pyridium 100 mg t.i.d., polyethylene glycol 17 grams in 8 ounces of water daily, OxyIR 5 mg every 6 hours p.r.n. and [facility]. HABITS: Distant history of tobacco use. FAMILY HISTORY: Noncontributory. SOCIAL HISTORY: The patient hopes to return back home with his and get back to his prior level of functioning. REVIEW OF SYSTEMS: HISTORY AND PHYSICAL [id number] JF FABIAN GENERAL: Does complain of some weakness and fatigue. HEENT: Denies cold, cough, or congestion. CARDIOVASCULAR: Denies any chest pain. PHYSICAL EXAMINATION: VITAL SIGNS: Stable, afebrile. He is a little bit tachycardic. GENERAL: A well-developed gentleman in no acute distress, alert upon exam. HEENT: Normocephalic and atraumatic. Mucosa moist. NECK: Supple. No lymphadenopathy. LUNGS: Clear at this time. No wheezing, rhonchi or rales. HEART: Regular rate and rhythm. He is somewhat tachycardic. ABDOMEN: Soft, benign, and nondistended. Positive bowel sounds times 4. EXTREMITIES: No clubbing, cyanosis or edema. NEUROLOGIC: He is intact. His postop area appears well. LABORATORY DATA: White count is 12.6, H&H of 11 and 33 and platelet count was 335. His sodium is 140, potassium 3.1, BUN and creatinine of 14 and 1.2, and blood sugar was noted to be 110. ASSESSMENT: This 69-year-old gentleman admitted to the rehab with a working diagnosis of status post total hip replacement with some postop complications. The patient has potential to make improvement. We instituted the following multidisciplinary therapies including, but not limited to physical, occupational, respiratory, speech, nutritional services, prosthetics and orthotics. Given his complex medical condition and risk for more complications, rehabilitation services cannot be provided at a low level of care such as [facility] facility. PLAN: 1. Admit to [facility] for intensive inpatient therapy to include the following disciplines; A. Physical therapy to improve gait, all transfer skills and bed mobility to a modified independent level. B. Occupational therapy to a modified independent level. C. Case management to assist with discharge planning and placement options. D. Nutrition to assist with nutritional needs. E. Rehabilitation nursing to assist in monitoring the patient's underlying medical condition and to assist with any type of bowel or bladder management. 2. The patient current medications and medical care will be continued. 3. The patient will be placed on standard fall precautions. 4. The patient's estimated length of stay is approximately 7-10 days. 5. We will discuss the patient during care team staff meeting this week. I am going to go ahead and replace his potassium while he is here and I will watch his heart rate closely. Repeat his labs and I am going to see again in the morning. TRANSINT:[id number] Voice Confirmation ID: [id number] DOCUMENT ID: [id number] MICHELLE notes whether there has been none or any medical/functional change since admission: - MICHELLE attests patient continues to be appropriate for IRF: HISTORY AND PHYSICAL [id number] JF FABIAN JOHN SCOTT MD at 0836 CC: [id number] DICTATION DATE: 11/19/19 1313 COMMUNITY ADVOCATE: 11/19/19 1345 ADM IN [place] [id number] [place] [address]
--- NOTE | 2019-11-21 10:43 | NUR ---
SITTING UP IN WC IN ROOM WATCHING TV. RASH NOTED TO BACK. RT HIP ANTERIOR INCISION IS CLEAN AND INTACT. NO S/S INFECTION. BORDER DSG APPEARS TO BE CAUSING SKIN IRRITATION AROUND INCISION. DSG LEFT OFF. CALL LIGHT IN REACH
--- NOTE | 2019-11-21 13:01 | NUR ---
SITTING IN WC EATING LUNCH. CALL LIGHT IN REACH
--- NOTE | 2019-11-21 14:00 | NUR ---
DC HOME WITH . DECLINED NEEDING MEDS CALLED IN. REVIEWED MEDS AND DC PLAN WITH PT AND . LEFT IN WC
--- NOTE | 2019-11-21 15:06 | NUR ---
PATIENT DISCHARGING HOME TODAY WITH FAMILY. [facility] WILL PROVIDE THERAPY AT HOME. NO NEW DME NEEDED AT THIS TIME. DR. JACOBS 12/08/2019 @ 2:15, DR. PARSON 12/05/2019 @ 10:00. PATIENT CHOICE FORM FOR HOME HEALTH WITH COMPARE DATA REVIEWED WITH PATIENT AND SPOUSE, THEY BOTH VOICED UNDERSTANDING. DISHCARGE INSTRUCTIONS FAXED TO PCP, HOME HEALTH AND REVIEWED WITH PATIENT AND SPOUSE. IMFM FORMS SIGNED, COPY OF FORMS GIVEN TO PATIENT AND FILED IN CHART.
== END 2019-11-21 14:10 | disposition home health service (06) | DRG 560 ==
LOC: D.REHAB 16:57
PROVIDERS: ADMIT Emergency Medicine; ATTEND Emergency Medicine
DX: Z47.1 Aftercare following joint replacement surgery (principal); D62 Acute posthemorrhagic anemia; Z96.641 Presence of right artificial hip joint; M16.11 Unilateral primary osteoarthritis, right hip; E03.9 Hypothyroidism, unspecified; J42 Unspecified chronic bronchitis; K21.9 Gastro-esophageal reflux disease without esophagitis; M19.90 Unspecified osteoarthritis, unspecified site; H40.9 Unspecified glaucoma; J32.9 Chronic sinusitis, unspecified; N40.0 Benign prostatic hyperplasia without lower urinary tract symptoms; R33.9 Retention of urine, unspecified; R53.81 Other malaise; R26.9 Unspecified abnormalities of gait and mobility; R00.0 Tachycardia, unspecified; K58.9 Irritable bowel syndrome, unspecified